=== PATIENT | female | born 1985 | race Hispanic/Latino ===

== ENCOUNTER 2024-02-01 09:15 | Emergency (ER) | payer SELFPAY ==
[~2024-02-01] VITALS: Ht 160 cm; Wt 108.9 kg
[2024-02-01 09:31] VITALS: PULSE 87; RESP 18; TEMP 97.8; O2SAT 100
[2024-02-01] MEDS: KETOROLAC TROMETHAMINE 60 MG/2 ML VIAL IM ONE (10:26)
== END 2024-02-01 11:08 | disposition home or self-care (01) ==
LOC: ER 09:23
DX: R07.89 Other chest pain (principal); M54.6 Pain in thoracic spine; J45.909 Unspecified asthma, uncomplicated
CPT/HCPCS: 71045; 81025; 99283; J1885